=== PATIENT | female | born 1990 | race Caucasian/White ===

== ENCOUNTER 2017-08-18 12:47 | Emergency (ER) | payer BC ==
[2017-08-18 15:08] VITALS: BP 126/68
--- NOTE | 2017-08-18 15:21 | UC ---
Lower Extremity/Ankle HPI - HPI Summary HPI Summary: Rolled ankle this afternoon and heard a "pop". Unable to walk on it. - History of Current Complaint Chief Complaint: UCLowerExtremity Stated Complaint: RIGHT ANKLE INJURY Time Seen by Provider: 08/18/17 15:15 Hx Obtained From: Patient Hx Last Menstrual Period: 9 weeks post , no menses ?: No Onset/Duration: Sudden Onset Severity Initially: Severe Severity Currently: Severe Aggravating Factor(s): Standing, Ambulation Able to Bear Weight: No - Risk Factors Gout Risk Factors: Negative - Allergies/Home Medications Allergies/Adverse Reactions: Allergies Allergy/AdvReac Type Severity Reaction Status Date / Time No Known Allergies Allergy Verified 08/18/17 15:08 Home Medications: Home Medications Cholecalciferol TAB* [Vitamin D TAB*] 2,000 units PO DAILY 08/18/17 [History Confirmed 08/18/17] Multivitamins/Minerals TAB* [Thera M Plus TAB*] 1 tab PO DAILY 08/18/17 [ History Confirmed 08/18/17] PMH/Surg Hx/FS Hx/Imm Hx Previously Healthy: Yes - Surgical History Surgical History: Yes Surgery Procedure, Year, and Place: x3 sections. Lap Elizabeth. 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 Is Patient Immunocompromised?: No All Other Systems Reviewed And Are Negative: Yes Physical Exam Triage Information Reviewed: Yes Appearance: Well-Appearing, Pain Distress - mild, Obese Vital Signs: Initial Vital Signs Temp 97.1 F 08/18/17 15:05 Pulse 98 08/18/17 15:05 Resp 16 08/18/17 15:05 BP 126/68 08/18/17 15:05 Vital Signs Reviewed: Yes Eyes: Positive: Conjunctiva Clear Neck exam: Normal Respiratory Exam: Normal Cardiovascular Exam: Normal Musculoskeletal: Positive: ROM Limited @ - right ankle and foot, Other: - Tender over the base of the 5th metatarsal and lateral malleolus with swelling Neurological Exam: Normal Psychological Exam: Normal Skin Exam: Normal Diagnostics - Radiology No standard instances Xray Interpretation: No Acute Changes - in the foot and the ankle. Radiology Interpretation Completed By: ED Physician Lower Extremity Course/Dx - Differential Dx/Diagnosis Differential Diagnosis/HQI/PQRI: Fracture (Closed), Sprain, Strain Provider Diagnoses: Right ankle sprain. Right foot sprain. Discharge - Discharge Plan Condition: Stable Disposition: HOME Patient Education Materials: Ankle Sprain (ED), Foot Sprain (ED), Crutch Instructions (ED) Additional Instructions: Follow up with an orthopedist in the next 2 days.
--- NOTE | 2017-08-18 16:19 | RAD ---
Indication: Fifth metatarsal base and lateral malleolus pain following injury. Fall. Comparison: No relevant prior exams available on the [facility] [place] [facility] for comparison. Technique: AP, lateral, and oblique views RIGHT foot. AP, lateral, and oblique views RIGHT ankle. Report: Normal articular alignment at the ankle and foot. No cortical disruption or suspicious trabecular irregularity to suggest fracture. No significant articular arthropathic change evident. Small plantar fascia origin bone spur. Mild soft tissue swelling about the ankle and foot without focality. No suggestion of talocrural joint effusion. IMPRESSION: Soft tissue swelling without additional acute abnormality at the RIGHT ankle or foot.
--- NOTE | 2017-08-18 16:19 | RAD ---
Indication: Fifth metatarsal base and lateral malleolus pain following injury. Fall. Comparison: No relevant prior exams available on the [facility] [place] PACS for comparison. Technique: AP, lateral, and oblique views RIGHT foot. AP, lateral, and oblique views RIGHT ankle. Report: Normal articular alignment at the ankle and foot. No cortical disruption or suspicious trabecular irregularity to suggest fracture. No significant articular arthropathic change evident. Small plantar fascia origin bone spur. Mild soft tissue swelling about the ankle and foot without focality. No suggestion of talocrural joint effusion. IMPRESSION: Soft tissue swelling without additional acute abnormality at the RIGHT ankle or foot.
== END 2017-08-18 16:35 | disposition home or self-care (01) ==
LOC: UCCORT 12:47
DX: S93.401A Sprain of unspecified ligament of right ankle, initial encounter (principal); S93.601A Unspecified sprain of right foot, initial encounter; X50.1XXA Overexertion from prolonged static or awkward postures, initial encounter; Y93.9 Activity, unspecified; Y92.9 Unspecified place or not applicable; E66.9 Obesity, unspecified
CPT/HCPCS: 99203; G0463